=== PATIENT | male | born 2000 | race Caucasian/White ===

== ENCOUNTER 2023-02-04 16:56 | Emergency (ER) | payer OTHER ==
[2023-02-04 17:06] VITALS: BP 128/69; PULSE 98; RESP 20; TEMP 98.2; BMI 26.6
[2023-02-04] MEDS ORDERED: DIPHTH,PERTUSS(ACELL),TET 0.5 ML DISP.SYRIN IM ONE ×2 (18:32→18:35)
[2023-02-04] MEDS ORDERED: BACITRACIN 0.9 GM PACKET TP ONE (18:32)
[2023-02-04] MEDS ORDERED: BACITRACIN ZINC 15 GM TUBE TOPICAL OINTMENT ONE (18:34)
[2023-02-04] MEDS ORDERED: IBUPROFEN 600 MG TABLET (FP) PO ONE ×2 (18:50)
== END 2023-02-04 19:20 | disposition home or self-care (01) ==
LOC: JERFT 16:56
PROC: 3E0234Z Introduction of Serum, Toxoid and Vaccine into Muscle, Percutaneous Approach (ICD-10-PCS; principal; 2023-02-04)
DX: T23.231A Burn of second degree of multiple right fingers (nail), not including thumb, initial encounter (principal); T31.0 Burns involving less than 10% of body surface; X08.8XXA Exposure to other specified smoke, fire and flames, initial encounter
CPT/HCPCS: 90715; 99283-25